=== PATIENT | male | born 1965 | race Caucasian/White ===

== ENCOUNTER 2020-11-15 13:33 | Emergency (ER) | payer MEDICARE ==
[~2020-11-15 13:33] MED LIST: CLEOCIN300 MG PO; HYDROCODON-ACE1 EAC4 PO; NORCO 5-325 TA1 EAC1 PO; VOLTAREN **OUT75 MG PO
[2020-11-15 17:14] LABS: EOSINOPHIL 1.6 % (0-5); HCT 48.6 % (42.0-52.0); MCH 31.9 pg (25.0-31.0); MCHC 32.9 g/dL (32.0-36.0); MCV 96.8 fL (78.0-100.0); MONOCYTE 7.1 % (0-12); MPV 10.4 fL (6.0-9.5); NRBC 0; PLT 215 K/uL (150-400); RBC 5.02 M/uL (4.70-6.00); RDW 12.4 % (11.5-14.0); WBC 6.8 K/uL (4.0-10.5)
[2020-11-15 17:34] LABS: ALBUMIN 3.8 g/dL (3.4-5.0); BILIRUBIN - TOTAL 0.4 mg/dL (0.2-1.0); BUN/CREAT RATIO (CALC) 5.4 RATIO; CREATININE 0.92 mg/dL (0.67-1.17); GLOBULIN (CALCULATION) 4.3 g/dL; POTASSIUM 4.2 mmol/L (3.5-5.1); TOTAL PROTEIN 8.1 g/dL (6.4-8.2)
[2020-11-15 17:39] LABS: LACTIC ACID 1.7 mmol/L (0.4-1.9)
== END 2020-11-15 18:32 | disposition home or self-care (01) ==
LOC: FER 13:33
PROVIDERS: Nurse Practitioner Family
DX: T81.89XA Other complications of procedures, not elsewhere classified, initial encounter (principal); S91.001A Unspecified open wound, right ankle, initial encounter; I10 Essential (primary) hypertension; F17.210 Nicotine dependence, cigarettes, uncomplicated; Z88.0 Allergy status to penicillin; Z98.890 Other specified postprocedural states; Z79.899 Other long term (current) drug therapy; Y83.2 Surgical operation with anastomosis, bypass or graft as the cause of abnormal reaction of the patient, or of later complication, without mention of misadventure at the time of the procedure
CPT/HCPCS: 36415; 73610; 80053; 83605; 85025; 87040; 87070; 87077; 87186; 87205; 93005